=== PATIENT | male | born 1965 | race Two or more races ===

== ENCOUNTER 2016-04-21 12:39 | Emergency (ER) | payer OTHER ==
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
[2016-04-21 11:45] LABS: BASOPHIL# 0.1 X10e3 (0-0.3); BASOPHIL% 0.7 % (0-2.5); EOSINOPHIL# 0.2 X10e3 (0-0.7); EOSINOPHIL% 1.8 % (0.0-7.0); HEMATOCRIT 49.5 % (38.0-50.0); HEMOGLOBIN 16.8 gm/dL (13.0-16.0); LYMPHOCYTE# 1.4 X10e3 (1.0-3.5); MEAN CELL VOLUME 90.5 FL (83-96); MEAN CORPUSCULAR HEMOGLOBIN 30.7 PG (28-34); MEAN CORPUSCULAR HGB CONC 33.9 g/dL (30-36); MEAN PLATELET VOLUME 8.2 FL (6.5-11.5); MONOCYTE# 0.6 X10e3 (0-1.0); MONOCYTE% 7.2 % (3.0-12.0); NEUTROPHIL# 6.6 X10e3 (1.5-7.1); NEUTROPHIL% 74.3 % (40-75); PLATELET COUNT 153 X10e3 (140-420); RED BLOOD COUNT 5.46 X10e (3.90-5.60); RED CELL DISTRIBUTION WIDTH 13.1 % (11.0-15.5); WHITE BLOOD COUNT 8.8 X10e3 (4.0-10.5)
[2016-04-21 11:52] LABS: DIFF IND NO
[2016-04-21 12:00] LABS: PARTIAL THROMBOPLASTIN TIME 33.8 SECONDS (23.5-31.3); PROTHROMBIN TIME (PATIENT) 32.5 SECONDS (9.6-11.5)
[~2016-04-21 12:39] MED LIST: ANAPRIL PO; BACTRIM DS TABL1 TA1 PO; DOXYCYCLINE PO; FISH OIL500 M2 PO; VASOTEC PO
== END 2016-04-21 13:30 | disposition home or self-care (01) ==
LOC: CED 12:39
PROVIDERS: Emergency Medicine
DX: S00.03XA Contusion of scalp, initial encounter (principal); S93.121A Dislocation of metatarsophalangeal joint of right great toe, initial encounter; S93.124A Dislocation of metatarsophalangeal joint of right lesser toe(s), initial encounter; I10 Essential (primary) hypertension; Z88.0 Allergy status to penicillin; Z87.891 Personal history of nicotine dependence; V49.40XA Driver injured in collision with unspecified motor vehicles in traffic accident, initial encounter; Y92.488 Other paved roadways as the place of occurrence of the external cause
CPT/HCPCS: 28630; 70450; 73620; 73630; 85025; 85610; 85730; 99284

== ENCOUNTER → 2016-04-27 12:54 | Emergency (ER) | payer OTHER | END | disposition home or self-care (01) | LOC: CED 12:54 | DX: S90.31XA Contusion of right foot, initial encounter (principal); Z88.0 Allergy status to penicillin; X58.XXXA Exposure to other specified factors, initial encounter; Y92.9 Unspecified place or not applicable | CPT/HCPCS: 29540; 99283 ==